=== PATIENT | male | born 1995 | race African-American/Black ===

== ENCOUNTER 2018-08-23 14:34 | Emergency (ER) | payer OTHER | END 2018-08-23 16:13 | disposition home or self-care (01) | LOC: FTE 14:34 | DX: J06.9 Acute upper respiratory infection, unspecified (principal); R40.2412 Glasgow coma scale score 13-15, at arrival to emergency department; Z87.891 Personal history of nicotine dependence | CPT/HCPCS: 99282-25; Z7502 ==

== ENCOUNTER 2018-11-05 16:59 | Emergency (ER) | payer SELFPAY, OTHER | END 2018-11-05 19:05 | disposition left against medical advice (07) | LOC: FTE 16:59 | DX: Z53.21 Procedure and treatment not carried out due to patient leaving prior to being seen by health care provider (principal) ==